=== PATIENT | female | born 1960 | race Caucasian/White ===

== ENCOUNTER 2016-10-05 02:54 | Observation (INO) | payer OTHER, SELFPAY ==
[~2016-10-05 02:54] MED LIST: ALBUTEROL SULF8.5 GM IH; ALKA-SELTZER H1 EAC1 PO; ALPRAZOLAM0.25 M3 PO; BENADRYL ALLERG25 M1 PO; BENTYL20 MG PO; BUSPIRONE HCL10 M2 PO; CLARITIN-D 241 EAC2 PO; CLONAZEPAM0.5 M2 PO; COMBIVENT INH14.7 G1 IH; CPAP; CYMBALTA30 M1 PO; CYMBALTA60 M1 PO; CYMBALTA60 MG PO; EFFEXOR XR75 M1 PO; FAMOTIDINE20 M1 PO; FISH OIL 1,2001 EAC5 PO; FLEXERIL10 MG PO; FLONASE ALLERG9.9 ML; FLONASE16 G2 NS; FLOVENT DISKU100 MC1 IH; FLUTICASONE PRO16 G1; GAS-X80 M1 PO; HYDROCHLOROTH12.5 M2 PO; HYDROCHLOROTH12.5 M3 PO; HYOSCYAMINE0.375 M3 PO; IBUPROFEN200 M2 PO; MACROBID 100 M100 M1 PO; MACRODANTIN100 M1 PO; MELATONIN10 M1 PO; MONTELUKAST SOD10 M2 PO; MULTIVITAMIN1 TAB PO; MULTIVITAMINS1 EAC6 PO; NAPROXEN500 M1 PO; NASAL SPRAY30 M3; NASAL SPRAY30 M3 NS; NORCO 5/3251 TA1 PO; OMEPRAZOLE20 M3 PO; PEPTO-BISM262 MG/11 PO; PRILOSEC20 MG PO; PRILOSEC40 M1 PO; PROAIR HFA8.5 GM IH; PROAIR HFA8.5 GM INH; PROTONIX20 M2 PO; PROVIGIL200 M1 PO; SIMVASTATIN10 MG PO; SIMVASTATIN20 M1 PO; SINGULAIR10 MG PO; SYMBICORT 160-1 PUFF INH; TRAZODONE HCL50 M1 PO; TYLENOL EXTRA500 M1 PO; TYLENOL WITH C1 EACH PO; VICODIN 5/500 T1 TAB PO; VITAMIN B-500 MCG/TA PO; VITAMIN D35000 UNI2 PO; VITAMIN D35000 UNI3 PO; VITAMIN D350000 UNI1 PO; WELCHOL625 M1 PO; XANAX0.25 MG PO; ZANAFLEX4 M3 PO; ZOFRAN ODT4 MG PO; ZOFRAN ODT4 MG/UDTAB PO; ZOFRAN4 M2 PO; [UNRECOGNIZED DRUG - OTHER] PO
[2016-10-05 03:24] LABS: BASO % 0.9 % (0-2); BASO ABSOLUTE COUNT 0.1 tho/cmm (0.0-0.2); EOS % 1.4 % (0-7); EOSINOPHIL ABSOLUTE COUNT 0.1 tho/cmm (0.0-0.7); HCT-HEMATOCRIT 39.1 % (34.0-49.0); HGB-HEMOGLOBIN 13.2 gm/dl (12.0-15.5); IMMATURE GRANULOCYTES ABSOLUTE 0.02 tho/cmm (0-0.03); IMMATURE GRANULOCYTES PERCENT 0.2 % (0-0.3); LYMPH % 36.8 % (20-45); MCH (MEAN CORPUSCULAR HGB) 29.5 pg (28.0-32.0); MCHC MEAN CORPUSCULAR HGB CONC 33.8 % (32.0-36.0); MCV (MEAN CELL VOLUME) 87.3 fl (82.0-96.0); MEAN PLATELET VOLUME 9.3 cmc (9.4-12.4); MONO % 6.5 % (0-12); MONOCYTE ABSOLUTE COUNT 0.5 tho/cmm (0.0-1.2); NEUTROPHIL ABSOLUTE COUNT 4.4 tho/cmm (1.6-8.0); NEUTROPHIL-AUTOMATED 4.4 tho/cmm (1.6-8.0); NEUTROPHILS % 54.2 % (40-80); PLATELET COUNT 325 tho/cmm (150-450); RED BLOOD COUNT 4.48 mil/cmm (4.00-5.20); RED CELL DISTRIBUTION WIDTH 13.6 % (12.4-16.4); WHITE BLOOD COUNT 8.1 tho/cmm (4.0-10.0)
[2016-10-05 03:39] LABS: ALB/GLOB RATIO 0.9 (0.8-2.0); ALBUMIN 3.5 g/dl (3.5-5.0); ALKALINE PHOSPHATASE 126 U/L (33-138); ALT/SGPT 21 U/L (12-78); ANION GAP 15 mmol/L (0-20); AST/SGOT 10 U/L (10-40); BILIRUBIN,TOTAL 0.2 mg/dl (0-1.5); BLOOD UREA NITROGEN 12 mg/dl (6-24); CALCIUM 8.9 mg/dl (8.5-10.5); CARBON DIOXIDE-VENOUS 25 mmol/L (22-32); CHLORIDE 105 mmol/l (96-110); CREATININE 0.93 mg/dl (0.50-1.10); GLUCOSE 91 mg/dL (70-110); MAGNESIUM 2.2 mg/dl (1.8-2.6); POTASSIUM 3.7 mmol/L (3.7-5.1); SODIUM 141 mmol/L (135-145); eGFR VALUE FOR BLACK 81 mL/Min
[2016-10-05 03:44] LABS: TSH-THYROID STIMULATING HORM. 4.22 uIU/ml (0.40-3.80)
[2016-10-05 04:05] LABS: URINE BILIRUBIN NEGATIVE (NEG); URINE BLOOD NEGATIVE (NEG); URINE GLUCOSE (UA) NEGATIVE (NEG); URINE KETONE NEGATIVE (NEG); URINE LEUKOCYTE ESTERASE NEGATIVE (NEG); URINE NITRITE NEGATIVE (NEG); URINE PH 6.5 (5.0-8.0); URINE PROTEIN NEGATIVE (NEG)
[2016-10-05] MEDS ORDERED: XANAX0.25 M1 PO (04:05)
[2016-10-05] MEDS ORDERED: NEXIUM40 M1 PO (04:05)
[2016-10-05] MEDS ORDERED: ZOCOR20 M1 PO (04:06)
[2016-10-05] MEDS ORDERED: TAMOXIFEN CITRA20 M1 PO (04:06)
[2016-10-05] MEDS ORDERED: EFFEXOR XR75 M1 PO (04:06)
[2016-10-05] MEDS ORDERED: SINGULAIR10 M1 PO (04:07)
[2016-10-05] MEDS ORDERED: WELCHOL625 M1 PO (04:07)
[2016-10-05 04:09] LABS: URINE APPEARANCE CLEAR; URINE COLOR YELLOW
[2016-10-05 07:30] LABS: CHOLESTEROL 199 mg/dl (120-200); HDL CHOLESTEROL 57 mg/dl (40-60); LDL CHOLESTEROL 110 mg/dl (0-99); VLDL 32 mg/dl (0-30)
[2016-10-05 07:34] LABS: TRIGLYCERIDES 161 mg/dl (<149)
[2016-12-21] MEDS ORDERED: CARAFATE1 GM/10 M1 PO (23:33)
[2016-12-21] MEDS ORDERED: ZYRTEC10 M7 PO (23:34)
[2016-12-21] MEDS ORDERED: HYDROXYZINE HCL50 M1 PO (23:34)
[2016-12-21] MEDS ORDERED: TAMOXIFEN CITRA20 M1 PO (23:35)
[2016-12-21] MEDS ORDERED: XANAX0.5 M1 PO (23:35)
[2016-12-21] MEDS ORDERED: ABILIFY2 M1 PO (23:35)
[2016-12-21] MEDS ORDERED: EFFEXOR XR75 M1 PO (23:35)
[2016-12-21] MEDS ORDERED: VENTOLIN HFA18 G2 PO (23:36)
[2016-12-21] MEDS ORDERED: SYMBICORT 160-1 PUFF INH (23:36)
[2016-12-21] MEDS ORDERED: FLONASE ALLERG9.9 ML (23:36)
[2016-12-21] MEDS ORDERED: ALIGN4 M1 PO (23:37)
[2016-12-21] MEDS ORDERED: LEVSIN-SL0.125 MG SL (23:37)
[2017-03-14] MEDS ORDERED: CARAFATE1 GM/10 M1 PO (23:39)
[2017-03-14] MEDS ORDERED: ESOMEPRAZOLE MA40 MG PO (23:40)
[2017-03-14] MEDS ORDERED: ZOCOR20 M1 PO (23:40)
[2017-03-14] MEDS ORDERED: SINGULAIR10 M1 PO (23:40)
[2017-03-14] MEDS ORDERED: ZYRTEC10 M7 PO (23:40)
[2017-03-14] MEDS ORDERED: HYDROXYZINE HCL50 M1 PO (23:41)
[2017-03-14] MEDS ORDERED: ABILIFY2 M1 PO (23:41)
[2017-03-14] MEDS ORDERED: SYMBICORT 160-1 PUFF INH (23:42)
[2017-03-14] MEDS ORDERED: EFFEXOR XR75 M1 PO (23:42)
[2017-03-14] MEDS ORDERED: ALPRAZOLAM0.5 M3 PO (23:42)
[2017-03-14] MEDS ORDERED: TAMOXIFEN CITRA20 M1 PO (23:42)
[2017-03-14] MEDS ORDERED: FLONASE ALLERG9.9 ML (23:42)
[2017-03-14] MEDS ORDERED: PROAIR HFA8.5 GM INH (23:43)
[2017-03-14] MEDS ORDERED: ANASPAZ0.125 M1 PO (23:43)
[2017-03-14] MEDS ORDERED: ALIGN4 M1 PO (23:43)
[2017-03-14] MEDS ORDERED: FIBER GUMMIES1 EACH PO (23:44)
[2017-03-14] MEDS ORDERED: VITAMIN E400 UNI4 PO (23:44)
[2017-03-14] MEDS ORDERED: SUPER B COMPLE150 M1 PO (23:44)
[2017-03-14] MEDS ORDERED: TUDORZA PRESS400 MC1 INH (23:45)
[2017-03-14] MEDS ORDERED: SUDAFED 24-HOU240 M1 PO (23:45)
[2017-03-14] MEDS ORDERED: NASAL SPRAY30 ML (23:45)
[2017-03-14] MEDS ORDERED: WOMEN'S MULTI200 MCG (23:45)
[2017-03-15] MEDS ORDERED: NORCO 5/3251 TAB PO (00:39)
== END 2016-10-05 21:13 ==
LOC: EDMED 02:54 → EMR2 06:44 → CAR1 12:41
PROVIDERS: Emergency Medicine; Nurse Practitioner Family; ADMIT Internal Medicine Cardiovascular Disease
DX: R07.89 Other chest pain (principal); I10 Essential (primary) hypertension; E78.5 Hyperlipidemia, unspecified; F41.9 Anxiety disorder, unspecified; Z85.3 Personal history of malignant neoplasm of breast; Z79.899 Other long term (current) drug therapy; Z88.2 Allergy status to sulfonamides; Z88.1 Allergy status to other antibiotic agents; Z88.8 Allergy status to other drugs, medicaments and biological substances; Z90.49 Acquired absence of other specified parts of digestive tract; Z98.890 Other specified postprocedural states; Z85.828 Personal history of other malignant neoplasm of skin
CPT/HCPCS: A9500; G0378; J2060; J2270; J2405